=== PATIENT | female | born 1990 | race Caucasian/White ===

== ENCOUNTER 2018-09-28 10:07 | Inpatient (IN) | payer OTHER, MEDICAID ==
[~2018-09-28] VITALS: Ht 162.6 cm; Wt 63.0 kg
[~2018-09-28 10:07] MED LIST: ANUSOL-HC25 MG RECTAL; BACTRIM DS TAB1 EACH PO; CIPRO500 MG PO; FLEXERIL PO; IBUPROFEN 800800 MG PO; KEFLEX500 MG PO; NORCO 5-325 TA1 EACH PO; PAIN & FEVER325 MG PO; TRINATE TABLET1 TAB PO; WELLBUTRIN XL150 MG PO; ZOFRAN ODT4 MG PO
[2018-09-28 10:32] LABS: URINE BLOOD TRACE (Negative); URINE CLARITY CLEAR; URINE COLOR DARK YELLOW; URINE GLUCOSE-RANDOM NEGATIVE (Negative); URINE KETONES TRACE (Negative); URINE LEUKOCYTES-REFLEX TRACE (Negative); URINE NITRITE-REFLEX NEGATIVE (Negative); URINE PROTEIN TRACE (Negative)
[2018-09-28 10:34] LABS: ICTOTEST (BILI CONFIRMATORY) Positive (Negative); URINE BILIRUBIN 3+ (Negative)
[2018-09-28 10:37] LABS: HEMATOCRIT 44.5 % (37.0-47.0); HEMOGLOBIN 15.5 gm/dL (12.0-15.0); MCH 33.4 pg (26.0-34.0); MCHC 34.7 g/dL (28.0-37.0); MCV 96.2 fL (80.0-100.0); MPV 8.5 fl. (7.2-11.1); NUCLEATED RBCS 0 /100WBC; PLATELET COUNT* 216 thou/uL (150-400); RBC 4.63 mil/uL (4.20-5.00); RDW-CV 12.2 % (10.5-14.5); WBC 6.9 thou/uL (4.0-11.0)
[2018-09-28 10:43] LABS: CALCIUM 9.3 mg/dL (8.5-10.1); CREATININE 0.7 mg/dL (0.6-1.3); POTASSIUM 3.7 mmol/L (3.5-5.1)
[2018-09-28 10:48] LABS: ALBUMIN 4.1 g/dL (3.4-5.0); TOTAL BILIRUBIN 2.7 mg/dL (<0.1-1.0)
[2018-09-28 10:50] LABS: BACTERIA-REFLEX 1-9 Few /HPF (None Seen); CASTS None Seen /LPF (None Seen); CRYSTALS None Seen /LPF (None Seen); MUCUS 0-3 Light strn/LPF (None Seen); SQUAMOUS 4-10 Moderate /LPF (0-3); URINE RBC 0-2 Rare /HPF (0-2); URINE WBC-REFLEX 0-5 Rare /HPF (0-5)
[2018-09-28 11:00] LABS: ABSOLUTE EOSINOPHILS 0.6 thou/uL (0.0-0.7); ABSOLUTE LYMPHOCYTES 0.6 thou/uL (0.8-5.3); ABSOLUTE MONOCYTES 0.3 thou/uL (0.0-1.2); ABSOLUTE NEUTROPHILS 5.3 thou/uL (1.6-8.1); PLATELET ESTIMATE ADEQUATE
[2018-09-28 11:01] LABS: ANISOCYTOSIS 1+; POIKILOCYTOSIS 1+
[2018-09-28 13:41] VITALS: BP 106/82
[2018-09-28 13:51] VITALS: BP 100/70
[2018-09-28] MEDS ORDERED: PROTONIX40 M1 PO (16:22)
[2018-09-28 17:20] VITALS: BP 114/71
[2018-09-28 17:49] LABS: AMP/METHAMP Negative (Negative); BARBITURATES Negative (Negative); BENZODIAZEPINES Negative (Negative); COCAINE Negative (Negative); METHADONE Negative (Negative); OPIATES Negative (Negative); PCP Negative (Negative); THC Negative (Negative)
--- NOTE | 2018-09-28 19:02 | NUR ---
ASSUMED PT CARE @ 1350. IVF INFUSING @ 50 MLS/HR. VS STABLE. UPPER ABDOMNINAL PAIN MANAGED WITH IV MORPHINE. PT UP AD MACK. PT HAD MRI PROCEDURE @ 1515. RECEIVED FULL LIQUID DIET FOR DINNER. PT TO BE NPO AFTER MIDNOC. HOURLY ROUNDS MAINTAINED. WILL USE CALL LIGHT FOR ASSISTANCE.
[2018-09-28 20:45] VITALS: BP 104/60
[2018-09-29 04:30] LABS: ABSOLUTE EOSINOPHILS 0.2 thou/uL (0.0-0.7); ABSOLUTE LYMPHOCYTES 0.6 thou/uL (0.8-5.3); ABSOLUTE MONOCYTES 0.8 thou/uL (0.0-1.2); ABSOLUTE NEUTROPHILS 4.6 thou/uL (1.6-8.1); BASOPHILS 0.4 %; EOSINOPHILS 2.6 %; HEMATOCRIT 39.4 % (37.0-47.0); HEMOGLOBIN 13.6 gm/dL (12.0-15.0); LYMPHOCYTES 9.1 %; MCH 33.3 pg (26.0-34.0); MCHC 34.5 g/dL (28.0-37.0); MCV 96.5 fL (80.0-100.0); MONOCYTES 13.4 %; MPV 8.3 fl. (7.2-11.1); NUCLEATED RBCS 0 /100WBC; PLATELET COUNT* 166 thou/uL (150-400); POLYS 74.5 %; RBC 4.08 mil/uL (4.20-5.00); RDW-CV 12.3 % (10.5-14.5); WBC 6.2 thou/uL (4.0-11.0)
[2018-09-29 04:46] LABS: INR 1.1; PROTIME 10.8 Seconds (9.20-11.50)
[2018-09-29 04:49] LABS: CALCIUM 8.3 mg/dL (8.5-10.1); CREATININE 0.5 mg/dL (0.6-1.3); TOTAL BILIRUBIN 3.5 mg/dL (<0.1-1.0); TOTAL PROTEIN 6.1 g/dL (6.4-8.2)
--- NOTE | 2018-09-29 06:36 | NUR ---
PATIENT HAS SLEPT WELL THROUGHOUT THE NIGHT. VSS ON RA. PAIN CONTROLLED WITH IV MEDICATION ORDERED. PATIENT HAS REMAINED NPO SINCE MIDNIGHT D/T SCAN SCHEDULED THIS AM. PATIENT IS UP AD-MACK AND STEADY. IV IN LEFT AC-NS @ 50ML/HR. PATIENT INSTRUCTED TO USE CALL LIGHT WHEN NEEDING ASSISTANCE. HOURLY ROUNDS MADE. WILL CONTINUE WITH PLAN OF CARE AND NURSING TO MONITOR.
[2018-09-29 07:45] VITALS: BP 92/53
[2018-09-29 09:09] LABS: HEPATITIS B SURFACE AG Negative (Negative)
[2018-09-29 11:12] LABS: IgG 725 mg/dL (700-1600); IgM 78 mg/dL (26-217)
[2018-09-29 15:37] VITALS: BP 126/77
--- NOTE | 2018-09-29 17:18 | NUR ---
PT REMAINED ALERT AND ORIENTED THIS SHIFT. PT C/O PAIN, MEDS GIVEN ORDERED. PT HAS VOMITING AND NAUSEA, ZOFRAN GIVEN ORDERED. FALL RISK PRECAUTIONS IN PLACE. HOURLY ROUNDING COMPLETED. WILL CONTINUE TO MONITOR.
[2018-09-29 21:10] VITALS: BP 103/59
[2018-09-30 04:13] LABS: ABSOLUTE EOSINOPHILS 0.2 thou/uL (0.0-0.7); ABSOLUTE NEUTROPHILS 4.2 thou/uL (1.6-8.1); BASOPHILS 0.4 %; EOSINOPHILS 2.7 %; HEMATOCRIT 39.9 % (37.0-47.0); LYMPHOCYTES 15.5 %; MCH 33.5 pg (26.0-34.0); MCHC 35.1 g/dL (28.0-37.0); MCV 95.7 fL (80.0-100.0); MONOCYTES 16.3 %; MPV 8.4 fl. (7.2-11.1); NUCLEATED RBCS 0 /100WBC; PLATELET COUNT* 181 thou/uL (150-400); POLYS 65.1 %; RBC 4.17 mil/uL (4.20-5.00); RDW-CV 12.4 % (10.5-14.5); WBC 6.4 thou/uL (4.0-11.0)
[2018-09-30 04:59] LABS: ALBUMIN 3.3 g/dL (3.4-5.0); CALCIUM 8.2 mg/dL (8.5-10.1); CREATININE 0.6 mg/dL (0.6-1.3); POTASSIUM 4.2 mmol/L (3.5-5.1); TOTAL BILIRUBIN 4.1 mg/dL (<0.1-1.0); TOTAL PROTEIN 6.1 g/dL (6.4-8.2)
--- NOTE | 2018-09-30 07:34 | NUR ---
PATIENT HAS SLEPT WELL THROUGHOUT THE NIGHT. VSS ON RA. PAIN CONTROLLED WITH ORAL PAIN MEDICATION AND CHARTED. PATIENT IS UP AD-MACK. IV IN LEFT AC-NS @ 50ML/HR. PATIENT GIVEN NAUSEA MEDICATION EARLIER IN SHIFT F/T NAUSEA AND SMALL AMOUNT OF EMESIS. PATIENT DID NOT HAVE ANY OTHER C/O NAUSEA DURING THE SHIFT AND SLEPT. PATIENT INSTRUCTED TO USE CALL LIGHT WHEN NEEDING ASSISTANCE. HOURLY ROUND MADE. WILL CONTINUE WITH PLAN OF CARE AND NURSING TO MONITOR.
[2018-09-30 09:00] VITALS: BP 106/70
--- NOTE | 2018-09-30 17:01 | NUR ---
ASSUMED CARE OF PATIENT AT APPROX 0730. ALERT AND ORIENTED X4. ASSESSMENT COMPLETED AND CHARTED. VSS ON ROOM AIR. FLUIDS AND ATIBIOTICS INFUSED ORDERED. PAIN, NAUSEA AND VOMITING MANAGED WITH IV MEDICATIONS. PATIENT IS UNABLE TO KEEP ANY FOODS DOWN AND HAS BEEN VOMITING WHENEVER ATTEMPTING TO EAT EVEN CLEAR LIQUIDS. SURGERY NOTIFIED AND STATED THAT THERE IS NO NEED TO REMOVE PATIENTS GALLBLADDER, INFORMED NURSING TO CALL GI. GI INFORMED AND TESTING ORDERED FOR TOMORROW WITH LIVER BIOPSY. WILL AWAIT RESULTS AND FURTHER PLAN. PATIENT INSTRUCTED TO USE CALL LIGHT FOR NEEDS AND DOES SO APPROPRIATELY. CALL LIGHT PLACED IN REACH. NURSING WILL CONTINUE TO MONITOR.
[2018-09-30 21:00] VITALS: BP 112/67
[2018-10-01] VITALS (10 sets, daily range): BP systolic 104–115; BP diastolic 61–74
[2018-10-01 04:40] LABS: ABSOLUTE EOSINOPHILS 0.2 thou/uL (0.0-0.7); ABSOLUTE LYMPHOCYTES 1.2 thou/uL (0.8-5.3); ABSOLUTE MONOCYTES 0.9 thou/uL (0.0-1.2); ABSOLUTE NEUTROPHILS 3.3 thou/uL (1.6-8.1); BASOPHILS 0.6 %; EOSINOPHILS 3.1 %; HEMATOCRIT 39.3 % (37.0-47.0); HEMOGLOBIN 13.6 gm/dL (12.0-15.0); LYMPHOCYTES 20.9 %; MCH 33.3 pg (26.0-34.0); MCHC 34.7 g/dL (28.0-37.0); MCV 95.8 fL (80.0-100.0); MONOCYTES 15.8 %; MPV 8.4 fl. (7.2-11.1); NUCLEATED RBCS 0 /100WBC; PLATELET COUNT* 186 thou/uL (150-400); POLYS 59.6 %; RDW-CV 12.3 % (10.5-14.5); WBC 5.6 thou/uL (4.0-11.0)
[2018-10-01 04:42] LABS: ALBUMIN 3.1 g/dL (3.4-5.0); CALCIUM 8.5 mg/dL (8.5-10.1); CREATININE 0.6 mg/dL (0.6-1.3); POTASSIUM 3.7 mmol/L (3.5-5.1); TOTAL BILIRUBIN 3.6 mg/dL (<0.1-1.0); TOTAL PROTEIN 5.9 g/dL (6.4-8.2)
--- NOTE | 2018-10-01 07:59 | NUR ---
PATIENT HAS SLEPT WELL THROUGHOUT THE NIGHT. VSS ON RA. PAIN CONTROLLED WITH IV PAIN MEDICATION. PATIENT ONLY C/O NAUSEA EARLY IN THE NIGHT AND WAS GIVEN NAUSEA MEDICATION. PATIENT HAS REMAINED NPO SINCE MIDNIGHT D/T SCHEDULED PROCEDURE TODAY. IV IN LEFT AC-NS @ 50ML/HR. PATIENT INSTRUCTED TO USE CALL LIGHT WHEN NEEDING ASSISTANCE. HOURLY ROUNDS MADE. WILL CONTINUE WITH PLAN OF CARE AND NURSING TO MONITOR.
--- NOTE | 2018-10-01 13:30 | NUR ---
PT.ORIENTED X 4. SHE LIVES WITH HER S.O.AND CHILDREN. SHE IS INDEPENDENT. NO OUSE OF DME. PLANS TO RETURN HOME AT DISCHARGE. GAVE HER PACKET FOR THE UNINSURED. SHE IS UPSET BECAUSE OF THE DELAY OF GETTING HER SURGERY. SHE JUST WANTS TO DO IT SO SHE CAN GET OUT OF THE HOSPITAL. CM WILL FOLLOW.
--- NOTE | 2018-10-01 17:38 | NUR ---
ASSUMED CARE OF PATIENT AT APPROX 0730. ALERT AND OREINTED X4. ASSESSMENT COMPLETED AND CHARTED. VSS ON ROOM AIR. NO COMPLAINTS OF SOA. PAIN AND NAUSEA MANAGED EWITH IV MEDICATIONS. FLUIDS AND ANTIBIOTICS INFUSED ORDERED. PATIENT VOICED FRUSTRATIONS THIS MORNING THAT SHE DID NOT FEEL THINGS WERE BEING DONE TO MAKE HER BETTER, THAT TESTS WERE NOT REVEALING ANYTHING TO TELL HER WHAT WAS WRONG OR WHAT NEEDED TO BE DONE. ERCP COMPLETED TODAY AND WAS UNREMARKABLE. LIVER BIOPSY WAS SCHEDULED FOR TOMORROW BUT PUSHED UP TO TODAY, RESULTS WILL BE BACK NEXT WEEK. PATIENT STATED SHE WAS FRUSTRATED THAT SURGERY WAS NOT DOING INTERVENTIONS OR HAD PLANS TO DO SURGERY TO REMOVE HER GALLBLADDER. PATIENT DECIDED IT WOULD BE BEST FOR HER TO SEEK A SECOND OPINION AT ANOTHER FACILITY AND CHOSE TO LEAVE AMA. PATIENT SIGNED AMA FORM AND LEFT AT 1730.
[2018-10-01 18:07] LABS: ANA INTERPRETATION Negative (())
--- NOTE | 2018-10-02 15:09 | PATH ---
[address] [address] PATHOLOGY RPT PROCEDURE Name: VONDA LARA Room: [address] IN M.R.#: [id number] Admission: 09/28/18 Date of : 89 Discharge: 10/01/18 Report #: [id number] Path Case #: [id number] [facility] Accession Number: [id number] . 01 Material submitted: . LIVER BIOPSY . 01 Clinical history: . Jaundice, rule out drug-induced liver injury . 02 Diagnosis: Liver biopsy: - Benign liver with moderate acute and chronic portal inflammation suggestive of drug-induced liver injury, negative for fibrosis. See comment. (ZAIDA:kayla; 10/02/2018) MBLalit/10/02/2018 . 02 Comment: The core biopsies show benign liver with prominent acute and chronic inflammation generally limited to the portal tracts and associated with eosinophils. Bile ducts are present and are also noted to have acute inflammation. No definite granulomas are seen and there is no significant steatosis. A panel of properly controlled special stains performed on both A1 and A2 both show the following results: . Iron: No stainable increase PAS with and without diastase: No PAS diastase resistant globules Reticulin: Normal hepatic plates Trichrome: No significant fibrosis. . The findings suggest acute drug-induced liver injury. This case will be submitted to the [facility] Department of Hepatopathology in consultation and an addendum report will be issued. . (ZAIDA:building maintenance engineer; 10/02/2018) . 02 Electronically signed: . Abel Robles MD, Pathologist NPI- [id number] . 01 Gross description: . Received in formalin labeled "Vonda Lara, liver," are 2 needle cores of morales soft tissue measuring 1.7 and 1.9 cm in length and less than 0.1 cm each in diameter. The specimen is submitted entirely in cassette A1 and A2. (TSD; 10/01/2018) TOB/[place] [address] PATHOLOGY RPT PROCEDURE Name: VONDA LARA Room: [address] IN [facility].#: [id number] Admission: 09/28/18 Date of : 89 Discharge: 10/01/18 Report #: [id number] Path Case #: [id number] . 02 Pathologist provided ICD-10: K76.9 . 02 CPT . 133413, [id number], 421776, 762210, 098090, [id number], [id number], 604754, 849609, 563734, 136396 Specimen Comment: A courtesy copy of this report has been sent to Specimen Comment: [phone]. Specimen Comment: Report sent to Performed at: [address], [place], [place] [id number] MD Chris Wiley MD Phone: [phone] Performed at: 02 [facility] [address], [place], [place] [id number] MD Abel Robles MD Phone: [phone]
== END 2018-10-01 17:30 | disposition left against medical advice (07) | DRG 446 ==
LOC: M.ERS 10:07 → M.TBA-ER 13:08 → M.ORTHSURG 13:08
PROVIDERS: Family Medicine; Internal Medicine Gastroenterology; Surgery; ADMIT Family Medicine
DX: K82.8 Other specified diseases of gallbladder (principal); E80.6 Other disorders of bilirubin metabolism; K08.409 Partial loss of teeth, unspecified cause, unspecified class; K59.00 Constipation, unspecified; K21.9 Gastro-esophageal reflux disease without esophagitis; Z53.21 Procedure and treatment not carried out due to patient leaving prior to being seen by health care provider; Z88.1 Allergy status to other antibiotic agents; Z80.8 Family history of malignant neoplasm of other organs or systems; Z80.1 Family history of malignant neoplasm of trachea, bronchus and lung; Z82.49 Family history of ischemic heart disease and other diseases of the circulatory system; Z83.3 Family history of diabetes mellitus